=== PATIENT | male | born 1955 | race Caucasian/White ===

== ENCOUNTER → 2018-08-23 09:46 | Outpatient (CLI) | payer OTHER, SELFPAY ==
[2018-08-23 12:57] LABS: Glucose 90 mg/dL (74-106); PSA,Total - Annual Screen 7.82 ng/mL (0.00-4.00)
== END ==
PROVIDERS: Family Provider Family Medicine; PCP Family Medicine; Referring Provider Family Medicine; Visit Provider Family Medicine
DX: Z12.5 Encounter for screening for malignant neoplasm of prostate (principal); Z13.1 Encounter for screening for diabetes mellitus
CPT/HCPCS: 36415; 82947; 84153; G0103

== ENCOUNTER → 2018-08-30 13:50 | Outpatient (CLI) | payer OTHER, SELFPAY ==
[2018-08-30 15:51] LABS: BUN 14 mg/dL (7-18); EST Glomerular Filtration Rate 72 mL/min (>60); Est Glom Filt Rate - Afr Amer 87 mL/min (>60)
== END ==
PROVIDERS: Family Provider Family Medicine; PCP Family Medicine; Referring Provider Family Medicine; Visit Provider Family Medicine
DX: I77.819 Aortic ectasia, unspecified site (principal); Z82.49 Family history of ischemic heart disease and other diseases of the circulatory system
CPT/HCPCS: 36415; 82565; 84520

== ENCOUNTER → 2019-04-23 | Outpatient (CLI) | payer OTHER, SELFPAY ==
[2019-04-23 12:59] LABS: PSA,Total- Diagnostic 5.66 ng/mL (0.0-4.0)
== END | disposition home or self-care (01) ==
LOC: MTLAB 10:28
PROVIDERS: Family Provider Family Medicine; PCP Family Medicine; Referring Provider Urology; Visit Provider Urology
DX: R97.20 Elevated prostate specific antigen [PSA] (principal)
CPT/HCPCS: 36415; 84153

== ENCOUNTER → 2023-05-11 | Outpatient (CLI) | payer MEDICARE, OTHER, SELFPAY ==
[2023-05-11 18:07] LABS: PSA,Total - Annual Screen 7.98 ng/mL (0.00-4.00)
== END | disposition home or self-care (01) ==
LOC: MTLAB 15:19
PROVIDERS: PCP Family Medicine; Referring Provider Urology; Visit Provider Urology
DX: Z12.5 Encounter for screening for malignant neoplasm of prostate (principal)
CPT/HCPCS: 36415; 84153; G0103